=== PATIENT | female | born 1965 | race Caucasian/White ===

== ENCOUNTER 2020-03-22 16:25 | Emergency (ER) | payer OTHER, BC, SELFPAY ==
[2020-03-22 16:43] VITALS: BP 143/80; PULSE 72; RESP 18; TEMP 37; O2SAT 98; BMI 21.1
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
--- NOTE | 2020-03-22 16:57 | ECG_ITS ---
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 Measurements Intervals Eva Rate: 73 P: 77 CA: 140 QRS: 71 QRSD: 74 T: 52 QT: 388 QTc: 430 Interpretive Statements SINUS RHYTHM WITH SINUS ARRHYTHMIA LOW QRS VOLTAGE IN PRECORDIAL LEADS [QRS DEFLECTION < 1.0 mV IN CHEST LEADS] No previous ECG available for comparison Electronically Signed On 03-23-2020 19:57:05 CDT by Sonny Moses M.D. [email or web address]
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
[2020-03-22 16:58] VITALS: O2SAT 98
[2020-03-22 17:22] LABS: Basophils # 0.1 10^3/uL (0.0-0.1); Basophils % 0.5 %; Eosinophils % 0.4 %; Hemoglobin 13.4 g/dL (11.5-15.3); Lymphocytes # 2.5 10^3/uL (0.8-4.8); Lymphocytes % 22.5 %; Mean Corpuscular HGB Conc 32.7 g/dL (30.0-36.0); Mean Corpuscular Hemoglobin 30.7 pg (28.0-34.0); Mean Platelet Volume 9.4 fL (7.4-10.4); Monocytes # 0.7 10^3/uL (0.2-0.9); Monocytes % 6.5 %; Neutrophils # 7.7 10^3/uL (1.8-7.7); Neutrophils % 69.8 %; Nucleated Red Blood Cells % 0 %; Platelet Count 291 10^3/cmm (130-400); Red Blood Count 4.36 10^6/uL (4.1-5.3); Red Cell Distribution Width 11.6 % (12.1-15.1)
[2020-03-22] MEDS: iohexol 300 mg/mL 100 mL Btl IV (17:26)
[2020-03-22 17:35] LABS: Alanine Aminotransferase 25 U/L (0-33); Albumin Level 4.4 g/dL (3.5-5.2); Alkaline Phosphatase 44 IU/L (35-105); Anion Gap 15.6 (5-19); Aspartate Amino Transferase 35 U/L (0-32); Blood Urea Nitrogen 9 mg/dL (6-20); Calcium 9.2 mg/dL (8.5-10.5); Carbon Dioxide 23 mmol/L (22-29); Chloride 105 mmol/L (98-107); Globulin 3.1 g/dL (1.3-4.6); Glomerular Filtration Rate 57.4 mL/min (90-130); Glucose 113 mg/dL (65-115); Lipase 60 U/L (13-60); Osmolality Calculated 287 mOsm/kg (285-295); Potassium 3.6 mmol/L (3.5-5.1); Sodium 140 mmol/L (136-145); Total Bilirubin 1.1 mg/dL (0.15-1.2); Total Protein 7.5 g/dL (6.6-8.7)
[2020-03-22 18:41] VITALS: BP 141/71; PULSE 84; O2SAT 98
[2020-03-22 20:02] VITALS: BP 125/74; PULSE 78; RESP 16; TEMP 36.7; O2SAT 97
== END 2020-03-22 20:11 | disposition home or self-care (01) ==
PROVIDERS: Family Medicine; Emergency Provider Emergency Medicine
DX: S27.322A Contusion of lung, bilateral, initial encounter (principal); S20.219A Contusion of unspecified front wall of thorax, initial encounter; S30.1XXA Contusion of abdominal wall, initial encounter; S13.4XXA Sprain of ligaments of cervical spine, initial encounter; V59.50XA Passenger in pick-up truck or van injured in collision with unspecified motor vehicles in traffic accident, initial encounter
CPT/HCPCS: 12345; 36415; 71260; 72125; 74177; 80053; 83690; 85025; 93005; 99282; 99283; Q9967